=== PATIENT | female | born 1945 | race Caucasian/White ===

== ENCOUNTER → 2019-01-12 | Day surgery (SDC) | payer MEDICARE, OTHER ==
[~2019-01-12] MED LIST: BALANCED SALT IRRIG SOLN COMB2 15 ML BOTTLE ONE; BUPIVACAINE HCL 0.75% INJ/PF (7.5 MG/1 ML) 10 ML SDV ONE; FENTANYL CITRATE INJ/PF 100 MCG/2 ML AMPUL ONE; LIDOCAINE 2% INJ (20 MG/ML) 20 ML MDV ONE; LIDOCAINE 2%/EPINEPHRINE INJ 20 ML VIAL ONE; MIDAZOLAM 2 MG/2 ML INJ ONE; ONDANSETRON HCL INJ/PF 4 MG/2 ML SDV ONE; POVIDONE-IODINE 5% OPH PREP SOLN 30 ML ONE; PROPOFOL INJ 200 MG/20 ML VIAL IV ONE; TETRACAINE HCL 0.5% OPH SOLN 0.6 ML DROPERETTE ONE; TETRACAINE HCL 0.5% OPH SOLN 4 ML ONE; THROMBIN (BOVINE) TOPICAL 5000 UNIT VIAL ONE; TOBRAMYCIN SULFATE/DEXAMETH OPH OINTMENT 3.5 GM ONE
[2019-01-12] MEDS: NEO/POLYMYX B SULF/DEXAMETH OPH OINTMENT 3.5 GM ONE ×2 (11:30→11:50)
--- NOTE | 2019-01-12 12:08 | [facility] DISCHARGE SUMMARY E ---
[facility] Discharge Summary NAME: MUNA CROWLEY AGE: 73Y ADMITTED: 01/12/2019 DISCHARGED: 01/12/2019 HOSPITAL COURSE: The patient is a 73-year-old lady who underwent uneventful upper eyelid blepharoplasty on 01/12/2019. She will be discharged to home. She is instructed to resume preoperative medications, take Tylenol as needed for discomfort, to use Maxitrol ointment to both upper lids twice a day, to use a blepharoplasty, ice pack 10 minutes every hour while awake for the first 24 hours, and she will follow up in my office in 1 week. DICTATING PHYSICIAN: SALLY ENGLAND M.D. [id number] PHY#: [id number] ID: [id number] JOB#: [id number] ACCT: [id number] cc:SALLY ENGLAND M.D. >
--- NOTE | 2019-01-12 12:09 | [facility] OPERATIVE REPORT E ---
[facility] NAME: MUNA CROWLEY AGE: 73Y DATE OF SURGERY: 01/12/2019 ROOM: PREOPERATIVE DIAGNOSIS: Bilateral upper eyelid dermatochalasis with visual field loss. POSTOPERATIVE DIAGNOSIS: Bilateral upper eyelid dermatochalasis with visual field loss. PROCEDURE PERFORMED: Bilateral upper eyelid blepharoplasty. SURGEON: SALLY ENGLAND M.D. ANESTHESIA: Local with MAC. PROCEDURE: The patient was brought to the operating room and tetracaine drops were placed in the eye. Both eyes were sterilely prepped and draped in the usual manner. Attention was directed to the left upper eyelid where the upper eyelid crease was marked and 0.3 mm forceps were used to estimate the excess upper eyelid skin to be excised. This was marked in an elliptical fashion. Identical procedure was performed on the right upper lid. Local anesthesia was administered. This consisted of 2% Xylocaine with epinephrine mixed with 0.75% Marcaine. A total of 3 mL of this was administered in the previously marked upper lid sites. Attention was directed to the left upper lid where the elliptical piece of skin was removed. Hemostasis was obtained with bipolar cautery. The oral septum was opened and prolapsed retroseptal fat was grasped with a hemostat, cut, and cauterized. Thrombin was placed on the incision. Identical procedure was performed on the right upper lid. Wound closure was completed with 3 interrupted 6-0 silk sutures, equally spaced through both upper lids, taking a deep bite of fascia and additionally running 6-0 nylon sutures were placed in both upper lids. There was good closure of the lids and good hemostasis at the end of the surgery. Maxitrol ointment was placed on both upper lids. The patient tolerated the procedure well and was sent to recovery room in good condition. DICTATING PHYSICIAN: SALLY ENGLAND M.D. [id number] PHY#: [id number] ID: [id number] JOB#: [id number] ACCT: [id number] cc:SALLY ENGLAND M.D. >
== END ==
LOC: SC 09:19
PROVIDERS: ATTEND Ophthalmology
DX: H02.831 Dermatochalasis of right upper eyelid (principal); H02.834 Dermatochalasis of left upper eyelid; Z87.891 Personal history of nicotine dependence; H53.453 Other localized visual field defect, bilateral; Z88.5 Allergy status to narcotic agent; Z88.0 Allergy status to penicillin; Z79.82 Long term (current) use of aspirin
CPT/HCPCS: 15823; J2250; J3490 ×7; J3010; J2405; J2704; 103

== ENCOUNTER 2019-06-06 09:34 | Day surgery (SDC) | payer MEDICARE, OTHER ==
[~2019-06-06 09:34] MED LIST changes: -BALANCED SALT IRRIG SOLN COMB2 15 ML BOTTLE ONE; -BUPIVACAINE HCL 0.75% INJ/PF (7.5 MG/1 ML) 10 ML SDV ONE; -FENTANYL CITRATE INJ/PF 100 MCG/2 ML AMPUL ONE; +KETOROLAC TROMETHAMINE 0.45% 4 DROP/0.4 ML DROPERETTE OS PRN; -LIDOCAINE 2% INJ (20 MG/ML) 20 ML MDV ONE; -LIDOCAINE 2%/EPINEPHRINE INJ 20 ML VIAL ONE; -MIDAZOLAM 2 MG/2 ML INJ ONE; -ONDANSETRON HCL INJ/PF 4 MG/2 ML SDV ONE; -POVIDONE-IODINE 5% OPH PREP SOLN 30 ML ONE; -PROPOFOL INJ 200 MG/20 ML VIAL IV ONE; -TETRACAINE HCL 0.5% OPH SOLN 0.6 ML DROPERETTE ONE; -TETRACAINE HCL 0.5% OPH SOLN 4 ML ONE; -THROMBIN (BOVINE) TOPICAL 5000 UNIT VIAL ONE; -TOBRAMYCIN SULFATE/DEXAMETH OPH OINTMENT 3.5 GM ONE
[2019-06-06] MEDS ORDERED: MIDAZOLAM 2 MG/2 ML INJ ONE (09:47)
[2019-06-06] MEDS: TETRACAINE HCL 0.5% OPH SOLN 4 ML OS PRN ×4 (11:10→12:00)
[2019-06-06] MEDS: TROPICAMIDE 1% OPH SOLN 3 ML OS PRN ×3 (11:10→11:30)
[2019-06-06] MEDS: CYCLOPENTOLATE 0.2%/PHENYLEPHRINE 1% OPH SOLN 2 ML OS PRN ×3 (11:10→11:30)
[2019-06-06] MEDS: BESIFLOXACIN HCL 0.6% OPH SUSP 5 ML BOTTLE OS PRN ×5 (11:10→12:39)
[2019-06-06] MEDS: LIDOCAINE 4% INJ/PF (40 MG/ML) 5 ML AMPUL OS PRN ×2 (12:03)
[2019-06-06] MEDS: BUPIVACAINE HCL 0.75% INJ/PF (7.5 MG/1 ML) 10 ML SDV OS PRN ×2 (12:03)
[2019-06-06] MEDS: EPINEPHRINE INJ/PF 1 MG/1 ML AMPULE ONE ×2 (12:10)
[2019-06-06] MEDS: CHONDR SU A NA/HYALUR INTRAOC KIT (SURGICARE) ONE ×2 (12:10)
[2019-06-06] MEDS: LIDOCAINE 1% INJ-PF (10 MG/ML) 30 ML SDV ONE ×2 (12:10)
[2019-06-06] MEDS: DORZOLAMIDE HCL 2%/TIMOLOL MALEAT 0.5% OPH SOLN 10 ML OS PRN ×3 (12:38→12:39)
[2019-06-06] MEDS ORDERED: HYALURONATE SODIUM SYRINGE 0.55 ML ONE (12:45)
--- NOTE | 2019-06-06 15:11 | PDOC DISCHARGE SUMMARY ---
Discharge Summary-[facility] Discharge Summary: DATE: 06/06/2019 FINAL DIAGNOSIS: CATARACT, LEFT EYE PROCEDURE: Cataract surgery with multifocal toric intraocular lens implant with Istent inject left eye HOSPITAL COURSE: The patient will be discharged to home. The patient is instructed to resume preoperative medications, take Tylenol as needed for discomfort, to keep the eye shielded, They should use the prescribed antibiotic, NSAID, and steroid at 3 PM and 8 PM, and to follow up in my office in 1 day.
--- NOTE | 2019-06-06 15:11 | Operative Report ---
[facility]ative Report-[facility] Operative Report: DATE OF SURGERY: 06/06/2019 PREOPERATIVE DIAGNOSIS: 1. CATARACT, LEFT EYE. 2. PRIMARY OPEN ANGLE GLAUCOMA, LEFT EYE POSTOPERATIVE DIAGNOSIS: 1. CATARACT, LEFT EYE. 2. PRIMARY OPEN ANGLE GLAUCOMA, LEFT EYE PROCEDURE PERFORMED: PHACOEMULSIFICATION WITH POSTERIOR CHAMBER INTRAOCULAR LENS WITH INSERTION OF ISTENT INJECTION, LEFT EYE Intraocular Lens Model: Symfony multifocal toric IOL Z XT 150 21.0 Total Phaco Time: 5.34 CDE SURGEON: SALLY ENGLAND MD ANESTHESIA: Topical with MAC INDICATIONS FOR SURGERY: Difficulty with glare at night difficulty reading small print INDICATION FOR ISTENT: Primary open angle glaucoma and to decrease the need for topical glaucoma medication PROCEDURE: The patient was brought to the operating room and placed on operative table. The 0,180, and 270 degree axis of the eye was marked with a marking level while the patient was in the seating position. Following Tetracaine drops, topical anesthesia was administered. This consisted of instrument wipes pledgets soaked in a solution of 4% Xylocaine mixed with a 0.75% Marcaine in a 1:2 ratio. A 2 x 1 cm pledget was placed in the superior fornix. A 11 cm pledget was placed in the inferior fornix. The eye was patched shut for 5 minutes. The patch was removed. The eye was sterilely prepped and draped in the usual manner. Lid speculum was placed in the eye. The pledgets were removed and a 4-0 black silk suture was placed around the superior and inferior rectus muscle to use as traction. Conjunctival peritomy was made at the 10 o'clock position. Hemostasis was obtained with bipolar cautery. A posterior limbal groove was created using a crescent knife and dissection anteriorly towards the cornea. A sharp point blade was used to create a paracentesis site at the 2 o'clock position. A 2.4 mm keratome was used to enter the anterior chamber through the group. Viscoelastic was injected into the anterior chamber. Anterior capsulotomy was performed using Utrata forceps in a capsulorrhexis fashion. Hydrodissection and hydrodelineation was performed. Phacoemulsification was performed in a divide and conquer technique. Following this, the I/A unit was used to remove residual cortex. Viscoelastic was injected into the capsular bag. Intraocular lens were placed in the capsular bag. the 6 degree axis was marked using the previously marked sites as reference. the lens was centered at this axis. Following insertion of the lens implant, additional Provisc was placed in the eye. The eye was rotated inferiorly and the gonioprism was placed on the eye. The trabecular meshwork was easily visualized. The ISTENT inject was opened and 2 ISTENTs were placed approximately 2 clock hours apart at approximately 6 o'clock and 8 o'clock. There was good reflux through the ISTENTs. The I/A unit was used to remove residual viscoelastic. The wound was seen to be watertight under high and low pressure, and no sutures were placed. The intraocular lens was well centered. The pressure was adjusted in the eye to normal pressure. The 4-0 black silk sutures and lid speculum were removed. The eye was shielded after Besivance and Cosopt drops were placed. The patient tolerated the procedure well and was sent to the recovery room in good condition.
== END 2019-06-06 13:20 | disposition home or self-care (01) ==
LOC: SC 09:34
PROVIDERS: ATTEND Ophthalmology
DX: H25.812 Combined forms of age-related cataract, left eye (principal); H40.1121 Primary open-angle glaucoma, left eye, mild stage; Z79.82 Long term (current) use of aspirin; Z87.891 Personal history of nicotine dependence
CPT/HCPCS: 0191T; 66984; 142; C1783; J0171; J2250; J3490; V2788

== ENCOUNTER 2019-06-27 08:02 | Day surgery (SDC) | payer MEDICARE, OTHER ==
[~2019-06-27 08:02] MED LIST changes: +BUPIVACAINE HCL 0.75% INJ/PF (7.5 MG/1 ML) 10 ML SDV OD PRN; +CHONDR SU A NA/HYALUR INTRAOC KIT (SURGICARE) ONE; +DORZOLAMIDE HCL 2%/TIMOLOL MALEAT 0.5% OPH SOLN 10 ML OD PRN; +EPINEPHRINE INJ/PF 1 MG/1 ML AMPULE ONE; +KETOROLAC TROMETHAMINE 0.45% 4 DROP/0.4 ML DROPERETTE OD PRN; -KETOROLAC TROMETHAMINE 0.45% 4 DROP/0.4 ML DROPERETTE OS PRN; +LIDOCAINE 1% INJ-PF (10 MG/ML) 30 ML SDV ONE; +LIDOCAINE 4% INJ/PF (40 MG/ML) 5 ML AMPUL OD PRN
[2019-06-27] MEDS: TETRACAINE HCL 0.5% OPH SOLN 4 ML OD PRN ×2 (09:07→09:34)
[2019-06-27] MEDS: TROPICAMIDE 1% OPH SOLN 3 ML OD PRN ×3 (09:07→09:33)
[2019-06-27] MEDS: BESIFLOXACIN HCL 0.6% OPH SUSP 5 ML BOTTLE OD PRN ×3 (09:08→10:32)
[2019-06-27] MEDS: CYCLOPENTOLATE 0.2%/PHENYLEPHRINE 1% OPH SOLN 2 ML OD PRN ×3 (09:08→09:33)
[2019-06-27] MEDS ORDERED: MIDAZOLAM 2 MG/2 ML INJ ONE (09:35)
[2019-06-27] MEDS ORDERED: FENTANYL CITRATE INJ/PF 100 MCG/2 ML AMPUL ONE (09:36)
[2019-06-27] MEDS ORDERED: HYALURONATE SODIUM SYRINGE 0.55 ML ONE (11:41)
--- NOTE | 2019-06-27 14:15 | Operative Report ---
Operative Report-[facility] Operative Report: DATE OF SURGERY: 06/27/2019 PREOPERATIVE DIAGNOSIS: CATARACT, RIGHT EYE. GLAUCOMA, RIGHT EYE POSTOPERATIVE DIAGNOSIS: CATARACT,RIGHT EYE. GLAUCOMA RIGHT EYE PROCEDURE PERFORMED: PHACOEMULSIFICATION WITH POSTERIOR CHAMBER INTRAOCULAR LENS, RIGHT EYE. INSERTION OF EYESTENT INJECT RIGHT EYE Intraocular Lens Model : Symfony toric Z XT 225 22.0 Total Phaco Time: 4.77 CDE SURGEON: SALLY ENGLAND MD ANESTHESIA: TOPICAL WITH MAC. INDICATIONS FOR SURGERY: Difficulty with night driving INDICATIONS FOR iSTENT: Control of glaucoma without the use of drops due to patient complaince and side effects PROCEDURE: The patient was brought to the Operating Room and placed in a seated position. a lid speculum was placed in the eye. the 0.180, and 270 degree axis of the cornea was marked with a toric marker. the patien was place in a reclining position. Following tetracaine drops, topical anesthesia was administered. This consisted of instrument wipe pledgets soaked in a solution of 4% Xylocaine mixed with 0.75% Marcaine in a 1:2 ratio. A 2 x 1 cm pledget was placed in the superior fornix. A 1 x 1 cm pledget was placed in the inferior fornix. The eye was patched shut for 5 minutes. The patch was removed. The eye was sterilely prepped and draped in the usual manner. Lid speculum was placed in the eye. The pledgets were removed. 4-0 black silk sutures were placed around the superior and the inferior rectus muscles to be used as traction. A conjunctival peritomy was made at the 10 o'clock position. Hemostasis was obtained with bipolar cautery. A posterior limbal groove was created using a crescent knife and dissected anteriorly towards the cornea. A sharp point blade was used to create a paracentesis site at the 2 o'clock position. 0.2 cc non preserved Lidocaine was injected into the anterior chamber. A 2.4 mm keratome was used to enter the anterior chamber through the groove. Viscoelastic was injected into the anteriorchamber. An anterior capsulotomy was performed using Utrata forceps in acapsulorrhexis fashion. Hydrodissection and hydrodelineation were performed. Phacoemulsification was performed in [id number] technique. Following this, the I/A unit was used to remove residual cortex. Viscoelastic was injected into the capsular bag. The Intraocular lens was placed in the capsular bag. The 4 degree axis of the eye was marked using a toric marker and the previously marked sites as reference. The lens was centered at this axis. The eye was refilled with viscoelastic and rotated inferiorly. the gonio prism was placed on the eye and the trabecular meshwork was visualized. the istent inject was placed in the Trabecular meshwork at the 4 and 6 oclock positions. There was good blood reflux through the lumens. The I/A unit was used to remove residual viscoelastic. The wound was seen to be watertight under high and low pressure, and no sutures were placed. The intraocular lens was well centered. The pressure was adjusted in the eye to normal pressure. The 4-0 black silk sutures and lid speculum were removed. The eye was shielded after Besivance and Cosopt drops were placed. The patient tolerated the procedure well and was sent to the Recovery Room in good condition.
== END 2019-06-27 11:03 | disposition home or self-care (01) ==
LOC: SC 08:02
PROVIDERS: ATTEND Ophthalmology
DX: H25.811 Combined forms of age-related cataract, right eye (principal); H40.1131 Primary open-angle glaucoma, bilateral, mild stage; Z96.1 Presence of intraocular lens; Z88.0 Allergy status to penicillin
CPT/HCPCS: 66984; C1783; V2788; J2250; J3490 ×6; A9270; J0171; J3010; 142

== ENCOUNTER → 2019-11-17 | Outpatient (CLI) | payer MEDICARE, OTHER ==
[2019-11-17 13:46] LABS: ABSOLUTE EOSINOPHILS # (AUTO) 0.3 10^3/uL (0.0-0.6); ABSOLUTE LYMPHOCYTES (AUTO) 1.4 10^3/uL (0.5-4.7); ABSOLUTE MONOCYTES (AUTO) 0.6 10^3/uL (0.1-1.4); ABSOLUTE NEUT (AUTO) 4.5 10^3/uL (1.7-8.2); BASOPHILS % (AUTO) 0.7 % (0-2); EOSINOPHILS % (AUTO) 3.7 % (0-6); HEMATOCRIT 36.9 % (36.0-47.0); HEMOGLOBIN 12.5 g/dL (12.0-15.5); LYMPHOCYTES % (AUTO) 20.5 % (13-45); MEAN CORPUSCULAR HEMOGLOBIN 29.2 pg (27.0-33.4); MEAN CORPUSCULAR HGB CONC 33.9 g/dL (32.0-36.0); MEAN CORPUSCULAR VOLUME 86 fl (80-97); MONOCYTES % (AUTO) 8.6 % (3-13); PLATELET COUNT 276 10^3/uL (150-450); RED BLOOD COUNT 4.28 10^6/uL (3.72-5.28); RED CELL DISTRIBUTION WIDTH 14.5 % (11.5-14.0); SEGMENTED NEUTROPHILS % (AUTO) 66.5 % (42-78); TOTAL CELLS COUNTED % (AUTO) 100 %; WHITE BLOOD COUNT 6.8 10^3/uL (4.0-10.5)
[2019-11-17 14:09] LABS: ALKALINE PHOSPHATASE 59 U/L (38-126); ANION GAP 11 (5-19); ASPARTATE AMINO TRANSFERASE 25 U/L (14-36); BILIRUBIN,DIRECT 0.4 mg/dL (0.0-0.4); BILIRUBIN,TOTAL 0.4 mg/dL (0.2-1.3); BLOOD UREA NITROGEN 12 mg/dL (7-20); CALCIUM 9.4 mg/dL (8.4-10.2); CARBON DIOXIDE 30 mmol/L (22-30); CHLORIDE 99 mmol/L (98-107); GLUCOSE 89 mg/dL (75-110); POTASSIUM 4.6 mmol/L (3.6-5.0); TOTAL PROTEIN 7.5 g/dL (6.3-8.2)
== END ==
LOC: OD 12:45
PROVIDERS: ATTEND Nurse Practitioner
DX: R82.90 Unspecified abnormal findings in urine (principal); Z79.899 Other long term (current) drug therapy
CPT/HCPCS: 36415; 80053; 85025